=== PATIENT | male | born 1980 | race Caucasian/White ===

== ENCOUNTER 2025-03-22 16:55 | Emergency (ER) | payer OTHER, SELFPAY ==
[2025-03-22 17:07] VITALS: BP 148/95
[2025-03-22 19:25] VITALS: BMI 28.7
--- NOTE | 2025-03-22 19:52 | ED.GENMED ---
History of Present Illness
General
Chief Complaint: Skin Surface Trauma
Source: patient
Time Seen by Provider: 03/22/25 19:23
History of Present Illness
History of Present Illness:
44-year-old male presenting to the emergency department for evaluation of laceration sustained to both right and left thumb while doing a kitchen renovation. Patient is right-hand dominant, tetanus is up-to-date and no other injuries were sustained.
Past History
Past History
ED Past Medical History: None
ED Past Surgical History: None
Social History
Tobacco: Non-smoker
Alcohol: Occasional
Drug: None
Personal:
Living: with family
Employment: Employed
Review of Systems
Review of Systems
All Other Systems: ROS reviewed and negative except as documented in HPI and ROS
Phy Exam
Physical Exam
Physical Exam:
GENERAL: Alert , in no apparent distress
EYE: conjunctiva clear
Head: Normocephalic atraumatic
NECK: Supple,
ENT: mmm.
LUNGS: no acute respiratory distress
NEUROLOGICAL: Alert and oriented
SKIN: Warm and dry, right thumb along the dorsal surface proximal portion of the phalanx is a V-shaped less than 1 cm superficial laceration through the dermal layer. No active bleeding. Left thumb along the dorsal surface closer to the IP joint
is a 1 cm superficial laceration with wound edges remaining approximated. Mild oozing but no active bleeding. No observable tendon laceration. Full range of motion of the extremities.
MUSCULOSKELETAL: well perfused.
PSYCH: Normal and appropriate interaction.
Scores
Heart Failure Risk
Heart Failure Risk Score: Not Applicable
Heart Score for Chest Pain Patients
STEMI patient?: Not applicable
Withdrawal Assessment of Alcohol
Withdrawal Assessment Completed?: Not applicable
Course
Vital Signs
Initial and Last Documented VS:
Initial Vital Signs
Temp Pulse Resp BP Pulse Ox
98.5 F 79 16 148/95 100
03/22/25 17:07 03/22/25 17:07 03/22/25 17:07 03/22/25 17:07 03/22/25 17:07
Last Documented Vital Signs
Temp Pulse Resp BP Pulse Ox
98.5 F 79 16 148/95 99
03/22/25 17:07 03/22/25 17:07 03/22/25 17:07 03/22/25 17:07 03/22/25 20:17
Procedures
Laceration Closure
Right Thumb:
Status of Wound: clean
Size of Wound in cm: 0.8
Description of Wound Edges: sharp
Preparation: cleaned with saline
Skin Closure Material: 5-0 nylon
Number of sutures: 2
Left Thumb:
Status of Wound: clean
Size of Wound in cm: 1
Description of Wound Edges: sharp
Preparation: cleaned with saline
Revision/Debridement: routine- no revision
Type of Closure: Dermabond-skin glue
MDM/Problems Addressed
Differential Diagnosis Includes:
Simple laceration
No concern for tendon or nerve injury
No concern for fracture
MDM/Problems Addressed:
Lacerations repaired as above without difficulty. Patient advised on wound care. Wounds were dressed. Aware of return precautions. Follow-up in 7 to 10 days for suture removal from the right thumb.
*Pulse Oximetry
SaO2: 100
Oxygen Mode of Delivery: Room air
Patient hypoxic: no
*Critical Care Note
Total Time (30-74mins, 75-104mins- exclusive of procedures): Not Applicable
ED Attending Note
-
Portions of this chart may have been created with voice recognition software.� Occasional wrong word or��sound alike� substitutions may have occurred due to the inherent limitations of voice recognition software.
Discharge Plan
Departure
Patient Disposition: Home (Routine Discharge)
Date of Disposition: 03/22/25
Time of Disposition: 19:52
Patient with high blood pressure during this ER visit?: Yes
Discharge Problem:
Laceration of right thumb, Laceration of left thumb
Instructions: Laceration Repair With Glue (DC), Laceration Repair With Stitches (DC)
Prescriptions:
No Action
albuterol 90 mcg/actuation Aerosol
180 mcg INHALATION DAILY
Activity Restrictions/Additional Instructions:
Suture removal in 7-10 days
Interventions
Interventions:
*Risk Screen - Suicide Last Done: 03/22/25 17:07
*General Assessment Last Done: 03/22/25 19:26
*Neglect/Abuse Screening Last Done: 03/22/25 19:26
*ED- Fall Risk Assessment Last Done: 03/22/25 19:26
*ED COVID-19 Vaccine History Last Done: 03/22/25 19:26
*Nursing Disposition Last Done: 03/22/25 20:17
ED-Skin Assessment Last Done: 03/22/25 19:26
Discharge Date and Time
Discharge Date/Time: 03/22/25 20:21
Print Language: VENEZUELAN
== END 2025-03-22 20:21 | disposition home or self-care (01) ==
LOC: EMR 16:55
PROVIDERS: EMERGENCY PHYSICIAN Emergency Medicine; FAMILY PHYSICIAN Internal Medicine
DX: S61.011A Laceration without foreign body of right thumb without damage to nail, initial encounter (principal); S61.012A Laceration without foreign body of left thumb without damage to nail, initial encounter; W26.0XXA Contact with knife, initial encounter
CPT/HCPCS: 99282; 12001